=== PATIENT | male | born 1975 | race Caucasian/White ===

== ENCOUNTER → 2017-09-16 | Outpatient (CLI) | payer OTHER ==
[~2017-09-16] MED LIST: IOHEXOL 350 MG/ML 100 ML (OMNIPAQUE 350) VIAL IV ONE; NS 100 ML (IVPB) BAG IV ONE
--- NOTE | 2017-09-16 08:54 | Diagnostic Imaging Report ---
PROCEDURE: CT angiography of the chest with contrast. TECHNIQUE: Multiple contiguous axial images were obtained through the chest after uneventful bolus administration of intravenous contrast. Reconstructed CTA MIP acquisitions were also performed. INDICATION: Right-sided anterior chest pain and cough. No prior studies are available for comparison. Evaluation of the pulmonary arterial system is without evidence of thromboembolism. No filling defects within the central, lobar or segmental pulmonary arterial branches are seen. The thoracic aorta is normal caliber. No dissection is seen. No pericardial or pleural fluid is identified. No axillary lymphadenopathy is detected. There are small lymph nodes in the mediastinum and holger but no pathologically enlarged nodes are seen. There are some areas of subsegmental atelectasis in the lingula. There is dependent atelectasis bilateral lower lobes. No parenchymal mass, nodule or infiltrate is seen. The upper abdomen is unremarkable. Bony structures appear nonacute. IMPRESSION: Essentially unremarkable CT angiogram of the chest. There is no evidence of pulmonary embolism or thoracic aortic dissection. Dictated by: Dictated on workstation # [id number]
== END ==
LOC: RAD 07:39
PROVIDERS: ATTEND Nurse Practitioner Family
DX: R05 Cough (principal); D72.829 Elevated white blood cell count, unspecified
CPT/HCPCS: 71275

== ENCOUNTER → 2017-09-16 | Outpatient (CLI) | payer OTHER ==
[2017-09-16 09:48] LABS: INR 0.9 (0.8-1.4); PROTHROMBIN TIME PATIENT 12.2 SEC (12.2-14.7)
[2017-09-16 09:49] LABS: PARTIAL THROMBOPLASTIN TIME 28 SEC (24-35)
[2017-09-16 09:51] LABS: FIBRIN DEGRADATION PRODUCTS < 0.27 UG/ML (0.00-0.49)
== END ==
LOC: LAB 08:43
PROVIDERS: ATTEND Nurse Practitioner Family
DX: R07.9 Chest pain, unspecified (principal); R10.11 Right upper quadrant pain; Z83.2 Family history of diseases of the blood and blood-forming organs and certain disorders involving the immune mechanism
CPT/HCPCS: 36415; 81240; 81241; 83090; 85240; 85303; 85306; 85307; 85379; 85610; 85705; 85730; 86141; 86146; 86147

== ENCOUNTER → 2017-10-07 | Outpatient (CLI) | payer OTHER ==
--- NOTE | 2017-10-07 20:49 | Diagnostic Imaging Report ---
PROCEDURE: CT abdomen and pelvis without contrast. TECHNIQUE: Multiple contiguous axial images were obtained through the abdomen and pelvis without the use of intravenous contrast. INDICATION: Nausea and vomiting. Diarrhea. Right upper quadrant pain for five days. FINDINGS: The gallbladder is absent. The liver and bile ducts are normal. The spleen, adrenals and kidneys are normal. There is slight haziness of the pancreas and the pancreas is minimally prominent. This could be secondary to an early or mild pancreatitis. No focal abnormality is seen. No peripancreatic mass or edema or focal fluid collection is seen. There is no acute bowel abnormality. The appendix is normal. There is no free intraperitoneal air or fluid. There is no acute bony abnormality. IMPRESSION: There may be minimal pancreatic edema which could be related to an early or mild pancreatitis. Recommend correlation with laboratory values. No other acute abnormality is evident. The phone number given for Nancy HALLEY Montiel ([phone]) is not in service. Her office number Online is for [facility] which closed at 6:00 p.m. [facility] was called to see if they had a contact number for her but they don't have that name in their directory. Therefore, the report was faxed to [facility] at 8:26 p.m., by yaneli. Dictated by: Dictated on workstation # [id number]
== END ==
LOC: RAD 19:33
PROVIDERS: ATTEND Nurse Practitioner Family
DX: R11.2 Nausea with vomiting, unspecified (principal); R19.7 Diarrhea, unspecified; R10.11 Right upper quadrant pain; E86.0 Dehydration
CPT/HCPCS: 74176

== ENCOUNTER → 2020-03-08 | Outpatient (CLI) | payer OTHER ==
[2020-03-08 13:07] LABS: ABSOLUTE RETIC # 44 10e9/L (24-90); BASOPHILS # (AUTO) 0.1 10^3/uL (0.0-0.1); BASOPHILS % (AUTO) 1 % (0-10); EOSINOPHILS # (AUTO) 0.4 10^3/uL (0.0-0.3); EOSINOPHILS % (AUTO) 5 % (0-10); HEMATOCRIT 44 % (40-54); LYMPHOCYTES # (AUTO) 2.1 X 10^3 (1.0-4.0); LYMPHOCYTES % (AUTO) 25 % (12-44); MEAN CORPUSCULAR HEMOGLOBIN 34 PG (25-34); MEAN CORPUSCULAR HGB CONC 34 G/DL (32-36); MEAN CORPUSCULAR VOLUME 98 FL (80-99); MEAN PLATELET VOLUME 10.8 FL (7.4-10.4); MONOCYTES # (AUTO) 0.7 X 10^3 (0.0-1.0); MONOCYTES % (AUTO) 9 % (0-12); NEUTROPHILS # (AUTO) 5.2 X 10^3 (1.8-7.8); NEUTROPHILS % (AUTO) 61 % (42-75); PLATELET COUNT 340 10^3/uL (130-400); RED CELL DISTRIBUTION WIDTH 14.2 % (10.0-14.5); RETICULOCYTE % 0.98 % (0.50-2.40); WHITE BLOOD COUNT 8.5 10^3/uL (4.3-11.0)
[2020-03-08 14:44] LABS: BAND NEUTROPHILS 5 %; BASOPHILS % (MANUAL) 0 %; EOSINOPHILS % (MANUAL) 5 %; LYMPHOCYTES % (MANUAL) 23 %; MONOCYTES % (MANUAL) 14 %; NEUTROPHILS % (MANUAL) 53 %
[2020-03-08 14:45] LABS: RBC MORPH NORMAL
== END ==
LOC: LABNPT 13:00
PROVIDERS: ATTEND Family Medicine
DX: D72.829 Elevated white blood cell count, unspecified (principal); E53.8 Deficiency of other specified B group vitamins; E55.9 Vitamin D deficiency, unspecified; I10 Essential (primary) hypertension; K21.9 Gastro-esophageal reflux disease without esophagitis; M10.9 Gout, unspecified; L70.8 Other acne; J30.89 Other allergic rhinitis; M79.671 Pain in right foot; Z72.0 Tobacco use
CPT/HCPCS: 85007; 85027; 85045

== ENCOUNTER → 2022-02-21 | Outpatient (CLI) | payer BC ==
[~2022-02-21] MED LIST changes: +CATHETER FLUSH 10 ML SYR IV PRN; +HOLD METFORMIN - RECEIVED CONTRAST 20 ML VIAL IV SCH
--- NOTE | 2022-02-21 09:40 | Diagnostic Imaging Report ---
PROCEDURE: CT neck soft tissue with contrast. TECHNIQUE: Multiple contiguous axial images were obtained through the neck after the administration of contrast. Auto Exposure Controls were utilized during the CT exam to meet ALARA standards for radiation dose reduction. INDICATION: Palpable abnormality in the right neck There is evidence of old nasal bone fracture with surgical reconstruction of the floor of the left orbit. Otherwise, images through the skull base are unremarkable. Ocular globes are intact. No evidence of nasopharyngeal lesion. Adenoidal tissue and tonsillar pillars are prominent which may be due to lymphoid hyperplasia. Dystrophic calcifications are seen in the tonsils bilaterally. Parotid and submandibular salivary glands are unremarkable in appearance. Occasional mildly prominent deep cervical lymph nodes are present bilaterally and generally symmetric in appearance. No great vessel or thyroid gland abnormality identified. Airway has a normal appearance. There is no evidence of neck mass. No focal fluid collection is seen. IMPRESSION: No evidence of mass or other space-occupying lesion in the neck. Dictated by: Dictated on workstation # [id number]
== END ==
LOC: RAD 08:02
PROVIDERS: ATTEND Otolaryngology Otolaryngology/Facial Plastic Surgery
DX: R13.10 Dysphagia, unspecified (principal); Z72.0 Tobacco use
CPT/HCPCS: 70491

== ENCOUNTER 2022-04-09 05:36 | Outpatient (CLI) | payer BC ==
[~2022-04-09] VITALS: Ht 180.3 cm; Wt 107.5 kg
[2022-04-09] MEDS ORDERED: PANT20TA18 PO (16:39)
[2022-04-09] MEDS ORDERED: FAMO20TA3 PO (16:39)
[2022-04-09] MEDS ORDERED: EZET10TA49 PO (16:39)
[2022-04-09] MEDS ORDERED: LOSA1TAB23 PO (16:39)
[2022-04-09] MEDS ORDERED: CETI10TA17 PO (16:39)
== END 2022-04-09 16:45 | disposition home or self-care (01) ==
LOC: PREOP 05:36
PROVIDERS: ATTEND Surgery
DX: Z01.818 Encounter for other preprocedural examination (principal)

== ENCOUNTER 2022-05-13 06:51 | Day surgery (SDC) | payer BC ==
[~2022-05-13] VITALS: Ht 180.3 cm; Wt 107.5 kg
[~2022-05-13 06:51] MED LIST changes: -CATHETER FLUSH 10 ML SYR IV PRN; +CETI10TA17 PO; +EZET10TA49 PO; +FAMO20TA3 PO; -HOLD METFORMIN - RECEIVED CONTRAST 20 ML VIAL IV SCH; -IOHEXOL 350 MG/ML 100 ML (OMNIPAQUE 350) VIAL IV ONE; +LOSA1TAB23 PO; -NS 100 ML (IVPB) BAG IV ONE; +PANT20TA18 PO
[2022-05-13] MEDS ORDERED: LACTATED RINGERS 1,000 ML IV STA (07:12)
[2022-05-13] MEDS ORDERED: HURRICAINE EXT TUBE (BENZOCAINE) XX PRN (07:15)
[2022-05-13 07:18] VITALS: BP 143/82
[2022-05-13] MEDS ORDERED: MIDAZOLAM 2 MG/2 ML (VERSED) VIAL ONE (09:59)
[2022-05-13] MEDS ORDERED: PROPOFOL INJECTION 50 ML IV ONE (09:59)
[2022-05-13] MEDS ORDERED: DOCU-143 PO (10:31)
--- NOTE | 2022-05-13 10:32 | Discharge Inst-Simple/Standard ---
Discharge Inst-Standard Discharge Medications New, Converted or Re-Newed RX: Transmitted to Pharmacy Patient Instructions/Follow Up Plan of Care/Instructions/FU: 2 weeks Sultana Keep stools soft. Activity as Tolerated: Yes Discharge Diet: Regular Diet (high fiber) CHRISTOFER FAJARDO DO May 13, 2022 10:32
[2022-05-13 10:33] VITALS: BP 135/80
[2022-05-13 10:38] VITALS: BP 131/78
[2022-05-13 10:43] VITALS: BP 131/81
[2022-05-13 10:45] VITALS: BP 131/81
[2022-05-13 11:15] VITALS: BP 131/81
--- NOTE | 2022-05-13 12:33 | Anesthesia-General Post-Op ---
MAC Patient Condition Mental Status/LOC: Same as Preop Cardiovascular: Satisfactory Nausea/Vomiting: Absent Respiratory: Satisfactory Pain: Controlled Complications: Absent Post Op Complications Complications None Follow Up Care/Instructions Patient Instructions None needed. Anesthesiology Discharge Order Discharge Order Patient is doing well, no complaints, stable vital signs, no apparent adverse anesthesia problems. No complications reported per nursing. MARKUS FORD CRNA May 13, 2022 12:33
--- NOTE | 2022-05-13 14:17 | OPERATIVE REPORT ---
DATE OF SERVICE: 05/13/2022 PREOPERATIVE DIAGNOSES: Gastroesophageal reflux disease, rectal bleeding. POSTOPERATIVE DIAGNOSES: Slight gastritis, rectal polyp and posterior anal fissure. SURGEON: Christofer Weinberg DO ANESTHESIA: Per CUT TO LENGTH OPERATOR. PROCEDURE: EGD with biopsies, colonoscopy with hot biopsy polypectomy x1. ESTIMATED BLOOD LOSS: None. COMPLICATIONS: None. INDICATIONS: The patient is a 46-year-old male with rectal bleeding and GERD symptoms. He understands risks and benefits of procedure and wishes to proceed. Consent was signed in the chart. DESCRIPTION OF PROCEDURE: The patient was taken to the endoscopy suite, placed in left lateral recumbent position. Timeout was performed. Scope was inserted in mouth, down the esophagus, stomach and into the duodenum without difficulty. No polyps, masses or ulcerations within the duodenum. Scope was slowly retracted back to stomach where it was further insufflated. Gastritis appearance erythematous changes present. Biopsy of the antrum and body were obtained. Scope was retroflexed noting no other pathology. Scope was returned to its normal position, slowly withdrawn to distal esophagus. Biopsy of the GE junction was obtained. Scope was slowly retracted back to completely remove noting no other pathology. Digital rectal exam was performed noting posterior anal fissure. No other small sentinel pile present. Scope was inserted in the rectum and advanced all the way to cecum with minimal difficulty. Prep was adequate. Scope was slowly retracted back. No polyps, masses or ulcerations within the cecum, ascending, transverse, descending and sigmoid colon. Once in the rectum, small polyp was present, which hot biopsy polypectomy was performed. Scope was then continuously retracted back. Scope was also retroflexed noting no other pathology. Scope was returned to its normal position, slowly withdrawn until completely removed. The patient tolerated the procedure well without any complications, taken to recovery room in stable condition. RECOMMENDATIONS: The patient will need repeat colonoscopy in 5 years, any issues before that be seen at that time. Keep the stool soft, we also recommended high fiber diet and stool softener. He may need diltiazem cream if it does not heal. He will follow up in 2 weeks. We will continue on current medications that may make some changes to his reflux medications once we get biopsies back. Job ID: [id number] DocumentID: [id number] Dictated Date: 05/13/2022 10:35:08 Ore Tester Date: 05/13/2022 14:17:20 Dictated By: CHRISTOFER WEINBERG DO
== END 2022-05-13 11:20 | disposition home or self-care (01) ==
LOC: ENDO 06:51
PROVIDERS: ATTEND Surgery
DX: K62.1 Rectal polyp (principal); K21.00 Gastro-esophageal reflux disease with esophagitis, without bleeding; K60.2 Anal fissure, unspecified; Z87.891 Personal history of nicotine dependence

== ENCOUNTER → 2023-05-18 | Outpatient (CLI) | payer BC, OTHER ==
[~2023-05-18] MED LIST changes: +DOCU-143 PO; +FAMO-356 PO; -FAMO20TA3 PO
== END ==
LOC: RAD 08:13
PROVIDERS: ATTEND Registered Nurse Critical Care Medicine
DX: Z53.9 Procedure and treatment not carried out, unspecified reason (principal)